=== PATIENT | female | born 1980 | race Native Hawaiian/Other Pacific Islander ===

== ENCOUNTER 2025-02-25 18:47 | Inpatient (IN) | payer MEDICAID, MEDICARE ==
[~2025-02-25] VITALS: Ht 172.7 cm; Wt 81.2 kg
[2025-02-25] MEDS ORDERED: ONDANSETRON 4 MG/2 ML VIAL IV ONE (19:15)
[2025-02-25 19:39] LABS: ABG BASE EXCESS -0.2 mmol/L (-2.0-3.0); ABG PCO2 28.7 mmHg (32.0-45.0); ABG PH 7.503 (7.350-7.450); ABG PO2 71.2 mmHg (83.0-108.0); ABG SITE LEFT RADIAL; ABG TOTAL HEMOGLOBIN 11.5 G/dL (12.0-16.0); AaDO2 95.8 mmHg; COHb 1.4 % (0.5-1.5); MetHb 0.3 % (0.0-1.5); O2Hb 90.9 % (94.0-98.0)
[2025-02-25 20:07] LABS: BASOPHILS # (AUTO) 0.1 K/UL (0.0-0.2); BASOPHILS % (AUTO) 0.5 % (0.0-2.0); EOSINOPHILS # (AUTO) 0.1 K/uL (0.0-0.7); EOSINOPHILS % (AUTO) 0.8 % (0.0-7.0); HEMATOCRIT 33.8 % (31.2-41.9); HEMOGLOBIN 10.6 g/dL (10.9-14.3); LYMPHOCYTES # (AUTO) 1.3 K/uL (0.8-4.8); LYMPHOCYTES % (AUTO) 11.4 % (20.5-51.5); MEAN CORPUSCULAR HEMOGLOBIN 23.9 uug (24.7-32.8); MEAN CORPUSCULAR HGB CONC 31 g/dL (32.3-35.6); MEAN CORPUSCULAR VOLUME 76.7 fL (75.5-95.3); MONOCYTES # (AUTO) 0.8 K/uL (0.1-1.30); NEUTROPHILS # (AUTO) 8.9 K/uL (1.8-8.9); NEUTROPHILS % (AUTO) 80.3 % (38.5-71.5); PLATELET COUNT (AUTO) 405 K/uL (179-408); RED BLOOD CELL COUNT(AUTO) 4.41 MIL/uL (3.63-4.92); RED CELL DISTRIBUTION WIDTH 20.5 % (12.3-17.7); WHITE BLOOD COUNT (AUTO) 11.1 K/uL (3.8-11.8)
[2025-02-25 20:10] LABS: DIFFERENTIAL COMMENT 1
[2025-02-25 20:16] LABS: CALCIUM 9.9 mg/dL (8.5-10.1); CREATININE 4.4 mg/dL (0.6-1.3); POTASSIUM 4.8 mmol/L (3.5-5.1)
[2025-02-25 20:21] LABS: ALBUMIN 3.6 g/dL (3.4-5.0); BILIRUBIN,DIRECT 0.5 mg/dL (0.0-0.2); BILIRUBIN,TOTAL 1.3 mg/dL (0.2-1.0)
[2025-02-25] MEDS ORDERED: ONDANSETRON ODT 4 MG TAB.RAPDIS ONE (20:32)
[2025-02-25 20:33] LABS: LACTIC ACID 2.1 mmol/L (0.4-2.0)
[2025-02-25] MEDS: ONDANSETRON ODT 4 MG TAB.RAPDIS SL ONE (20:33)
[2025-02-26] MEDS ORDERED: INSU100I14 SQ (01:05)
[2025-02-26] MEDS ORDERED: INSU3INS6 SQ (01:05)
[2025-02-26] MEDS ORDERED: APIX5TAB PO (01:05)
[2025-02-26] MEDS ORDERED: MIDO10TA PO (01:05)
[2025-02-26] MEDS ORDERED: SEVE800T7 (01:08)
[2025-02-26] MEDS ORDERED: ACETAMINOPHEN 325 MG TABLET PO PRN (03:00)
[2025-02-26] MEDS ORDERED: MAGNESIUM HYDROXIDE 30 ML LIQUID UDC PO PRN (03:00)
[2025-02-26] MEDS ORDERED: ONDANSETRON 4 MG/2 ML VIAL IV PRN (03:00)
[2025-02-26] MEDS ORDERED: ONDANSETRON ODT 4 MG TAB.RAPDIS ONE (03:14)
[2025-02-26] MEDS ORDERED: MECLIZINE HCL 25 MG TABLET ONE (03:14)
[2025-02-26] MEDS ORDERED: DEXTROSE 50% 50 ML DISP.SYRIN IV PRN (03:15)
[2025-02-26] MEDS: MECLIZINE HCL 25 MG TABLET PO ONE (03:17)
[2025-02-26] MEDS: ONDANSETRON ODT 4 MG TAB.RAPDIS SL ONE (03:17)
[2025-02-26 04:50] VITALS: BP 126/88; TEMP 98.2; O2SAT 99
[2025-02-26] MEDS ORDERED: HYDROMORPHONE 1 MG/1 ML DISP.SYRIN IV PRN (05:30)
[2025-02-26] MEDS: HYDROMORPHONE 1 MG/1 ML DISP.SYRIN IV PRN (05:39)
[2025-02-26] MEDS: diphenhydrAMINE 50 MG/1 ML VIAL IV ONE ×2 (06:18→10:44)
[2025-02-26] MEDS: BLOOD SUGAR DIAGNOSTIC 1 EACH STRIP VI SCH (06:33)
[2025-02-26 06:49] LABS: BASOPHILS # (AUTO) 0.1 K/UL (0.0-0.2); BASOPHILS % (AUTO) 0.7 % (0.0-2.0); EOSINOPHILS % (AUTO) 0.2 % (0.0-7.0); HEMATOCRIT 31.9 % (31.2-41.9); HEMOGLOBIN 10.2 g/dL (10.9-14.3); LYMPHOCYTES # (AUTO) 1.4 K/uL (0.8-4.8); LYMPHOCYTES % (AUTO) 13.2 % (20.5-51.5); MEAN CORPUSCULAR HEMOGLOBIN 24.6 uug (24.7-32.8); MEAN CORPUSCULAR HGB CONC 32 g/dL (32.3-35.6); MEAN CORPUSCULAR VOLUME 77.1 fL (75.5-95.3); MONOCYTES # (AUTO) 0.9 K/uL (0.1-1.30); MONOCYTES % (AUTO) 8.1 % (0.0-11.0); NEUTROPHILS # (AUTO) 8.2 K/uL (1.8-8.9); NEUTROPHILS % (AUTO) 77.8 % (38.5-71.5); PLATELET COUNT (AUTO) 382 K/uL (179-408); RED BLOOD CELL COUNT(AUTO) 4.13 MIL/uL (3.63-4.92); RED CELL DISTRIBUTION WIDTH 20.7 % (12.3-17.7); WHITE BLOOD COUNT (AUTO) 10.5 K/uL (3.8-11.8)
[2025-02-26 06:52] LABS: DIFFERENTIAL COMMENT 1
[2025-02-26 07:13] LABS: CALCIUM 9.4 mg/dL (8.5-10.1); CREATININE 4.9 mg/dL (0.6-1.3); MAGNESIUM 2.7 mg/dL (1.8-2.4)
[2025-02-26 07:42] VITALS: BP 113/81; TEMP 98.4; O2SAT 96
[2025-02-26] MEDS ORDERED: SEVELAMER CARBONATE 800 MG TABLET PO SCH (08:00)
[2025-02-26] MEDS: PANTOPRAZOLE SODIUM 40 MG VIAL IV SCH (08:46)
[2025-02-26] MEDS: INSULIN REGULAR, HUMAN 1000 UNIT/10 ML VIAL SQ PRN (08:48)
[2025-02-26] MEDS: MIDODRINE HCL 5 MG TABLET PO SCH (08:48)
[2025-02-26] MEDS: HYDROMORPHONE 1 MG/1 ML DISP.SYRIN IV ONE ×2 (10:44→16:07)
[2025-02-26] MEDS: ONDANSETRON 4 MG/2 ML VIAL IV PRN (10:45)
[2025-02-26 11:17] LABS: ALBUMIN 3.3 g/dL (3.4-5.0); BILIRUBIN,DIRECT 0.3 mg/dL (0.0-0.2); TOTAL PROTEIN, SERUM 8.1 g/dL (6.4-8.2)
[2025-02-26] MEDS ORDERED: LINA5TAB PO (11:34)
[2025-02-26] MEDS ORDERED: PREG50CA64 PO (11:34)
[2025-02-26] MEDS ORDERED: ZOLP10TA2 PO (11:35)
[2025-02-26 11:44] VITALS: BP 109/77; TEMP 98.2; O2SAT 95
[2025-02-26] MEDS: APIXABAN 5 MG TABLET PO SCH ×2 (11:45→21:21)
[2025-02-26] MEDS: SEVELAMER CARBONATE 800 MG TABLET PO SCH (13:10)
[2025-02-26 15:35] VITALS: BP 137/76; TEMP 97.7; O2SAT 96
[2025-02-26 19:00] VITALS: BP 96/132; TEMP 98.3; O2SAT 96
[2025-02-26] MEDS: diphenhydrAMINE 50 MG/1 ML VIAL IV PRN (20:14)
[2025-02-26] MEDS ORDERED: ZOLPIDEM 5 MG TABLET PO PRN (21:15)
[2025-02-26] MEDS: PREGABALIN 50 MG CAPSULE PO SCH (21:15)
[2025-02-26] MEDS: INSULIN GLARGINE,HUM 300 UNITS/3 ML CARTRIDGE SQ SCH (21:15)
[2025-02-26] MEDS: OXYCODONE HCL 5 MG TABLET PO PRN (22:20)
[2025-02-27 06:00] VITALS: BP 144/38; TEMP 98.4; O2SAT 100
[2025-02-27] MEDS: diphenhydrAMINE 25 MG CAP PO PRN (06:10)
[2025-02-27] MEDS: LINAGLIPTIN 5 MG TABLET PO SCH (09:00)
[2025-02-27 11:08] VITALS: BP 125/60; TEMP 99.3; O2SAT 97
[2025-02-27] MEDS: HYDROMORPHONE 1 MG/1 ML DISP.SYRIN IV ONE (15:14)
[2025-02-27 15:34] VITALS: BP 103/65; TEMP 97.8; O2SAT 100
[2025-02-27 17:13] VITALS: BP 118/61
[2025-02-28 04:07] LABS: HEPATITIS B SURFACE AB, QUAL Reactive (.); HEPATITIS B SURFACE AG Negative (Negative)
== END 2025-02-27 19:30 | disposition home health service (06) | DRG 111 ==
LOC: ER 18:53 → TELE3 02-26 02:30 → MEDSURG3 02-26 12:05 → UNDODISIN 02-26 16:43
PROVIDERS: ATTEND Nurse Practitioner Acute Care
PROC: 05H933Z Insertion of Infusion Device into Right Brachial Vein, Percutaneous Approach (ICD-10-PCS; principal; 2025-02-26)
PROC: 5A1D70Z Performance of Urinary Filtration, Intermittent, Less than 6 Hours Per Day (ICD-10-PCS; principal; 2025-02-26)
DX: H81.13 Benign paroxysmal vertigo, bilateral (principal); E87.20 Acidosis, unspecified; J81.1 Chronic pulmonary edema; E44.1 Mild protein-calorie malnutrition; E88.09 Other disorders of plasma-protein metabolism, not elsewhere classified; D63.1 Anemia in chronic kidney disease; N18.6 End stage renal disease; R62.7 Adult failure to thrive; E11.22 Type 2 diabetes mellitus with diabetic chronic kidney disease; K20.80 Other esophagitis without bleeding; R11.2 Nausea with vomiting, unspecified; K80.20 Calculus of gallbladder without cholecystitis without obstruction; G89.18 Other acute postprocedural pain; M25.562 Pain in left knee; M25.462 Effusion, left knee; E11.40 Type 2 diabetes mellitus with diabetic neuropathy, unspecified; Z79.01 Long term (current) use of anticoagulants; Z86.718 Personal history of other venous thrombosis and embolism; Z89.429 Acquired absence of other toe(s), unspecified side; Z88.5 Allergy status to narcotic agent; Z99.2 Dependence on renal dialysis
CPT/HCPCS: 36415; 36600; 70450; 71045; 71250; 73700; 73706; 83605; 83690; 83735; 84100; 85025; 85730; 86706; 87040; 87340; A4606; A4663; G0378; J1171; J1200; J1815; J2405; J2470; J7040; J8597; Q0162; Q0163